=== PATIENT | female | born 1990 | race Caucasian/White ===

== ENCOUNTER 2023-01-27 14:56 | Outpatient (CLI) | payer OTHER, SELFPAY | END 2023-01-27 14:57 | disposition home or self-care (01) | PROVIDERS: Visit Provider Family Medicine | DX: E66.01 Morbid (severe) obesity due to excess calories (principal); F41.1 Generalized anxiety disorder; R03.0 Elevated blood-pressure reading, without diagnosis of hypertension; R53.83 Other fatigue; Z11.1 Encounter for screening for respiratory tuberculosis | CPT/HCPCS: 80053; 80061; 84443; 86480 ==

== ENCOUNTER 2023-02-14 12:15 | Outpatient (CLI) | payer OTHER, SELFPAY | END 2023-02-14 12:16 | disposition home or self-care (01) | LOC: RAD 02-19 13:41 | PROVIDERS: Visit Provider Family Medicine | DX: I49.9 Cardiac arrhythmia, unspecified (principal); R00.1 Bradycardia, unspecified | CPT/HCPCS: 93225; 93226 ==